=== PATIENT | female | born 1995 | race Caucasian/White ===

== ENCOUNTER 2024-03-05 10:00 | Day surgery (SDC) | payer MEDICAID ==
[~2024-03-05] VITALS: Ht 160 cm; Wt 72.6 kg
[2024-03-05] MEDS: ACETAMINOPHEN I.V. 1000 MG 100 ML IV ONE (11:15)
[2024-03-05] MEDS ORDERED: ACETAMINOPHEN I.V. 1000 MG 100 ML IV ONE (11:20)
[2024-03-05 11:33] LABS: HCG,QUAL RESULT NEGATIVE (NEGATIVE)
[2024-03-05] MEDS ORDERED: NS IRRIG SOLN 1000 ML IR ONE (11:51)
[2024-03-05] MEDS ORDERED: SUGAMMADEX SODIUM 200 MG/2 ML VIAL IV ONE (11:51)
[2024-03-05] MEDS ORDERED: ROCURONIUM BROMIDE 10 MG/ML (ZEMURON) ONE (11:51)
[2024-03-05] MEDS ORDERED: ceFAZolin SODIUM 2 GM VIAL ONE (11:51)
[2024-03-05] MEDS ORDERED: SEVOFLURANE 15 MIN GAS INH ONE (11:51)
[2024-03-05] MEDS ORDERED: PROPOFOL 200MG/ 20ML VIAL (DIPRIVAN) IV ONE (11:51)
[2024-03-05] MEDS ORDERED: WATER FOR IRRIGATION,STERILE 1,000 ML IRRIG.SOLN IR ONE (11:51)
[2024-03-05] MEDS ORDERED: LR 1,000 ML IV.SOLN IV ONE (11:51)
[2024-03-05] MEDS ORDERED: ONDANSETRON HCL 4 MG/2 ML VIAL ONE (11:51)
[2024-03-05] MEDS ORDERED: DEXAMETHASONE SOD PHOSPHATE 4 MG/ML VIAL ONE (11:51)
[2024-03-05] MEDS ORDERED: fentaNYL CITRATE/PF 100 MCG/2 ML AMP ONE (12:00)
[2024-03-05] MEDS ORDERED: MIDAZOLAM HCL 2 MG/2 ML VIAL (VERSED) ONE ×2 (12:00→13:20)
[2024-03-05 13:00] VITALS: O2SAT 97
[2024-03-05] MEDS: MIDAZOLAM HCL 2 MG/2 ML VIAL (VERSED) IVP ONE (13:18)
[2024-03-05] MEDS: HYDROmorphone 1 MG/ML INJ. CARTRIDGE IVP PRN (13:20)
[2024-03-05] MEDS ORDERED: HYDROmorphone 1 MG/ML INJ. CARTRIDGE ONE (13:21)
[2024-03-05 16:47] VITALS: BP_SYST 120; PULSE 74; RESP 20
== END 2024-03-05 16:15 | disposition home or self-care (01) ==
LOC: SDS 10:00 → EDSEX 10:00 → SMU 10:01 → SDS 16:15
PROVIDERS: ATTEND Obstetrics & Gynecology
DX: N80.9 Endometriosis, unspecified (principal); I10 Essential (primary) hypertension; E78.5 Hyperlipidemia, unspecified; K21.9 Gastro-esophageal reflux disease without esophagitis; E66.3 Overweight; G40.909 Epilepsy, unspecified, not intractable, without status epilepticus; M79.7 Fibromyalgia; Z91.011 Allergy to milk products; Z88.0 Allergy status to penicillin; Z88.5 Allergy status to narcotic agent; Z91.048 Other nonmedicinal substance allergy status; Z88.8 Allergy status to other drugs, medicaments and biological substances; Z98.890 Other specified postprocedural states; Z79.899 Other long term (current) drug therapy
CPT/HCPCS: 58662; 84703; 93005; J3490; J1100; J2250; J2405; J2704; J3010; J1171; J7120; C1727; J0131